=== PATIENT | male | born 1980 ===

== ENCOUNTER 2020-09-03 23:42 | Emergency (ER) ==
[2020-09-04] MEDS ORDERED: Fluorescein Opthalmic Strip ONE (02:58)
[2020-09-04] MEDS ORDERED: Proparacaine 0.5% Opth 15 ML BOT ONE (02:58)
[2020-09-04] MEDS ORDERED: Boostrix 0.5 ML (Tdap) VIAL ONE (03:24)
== END 2020-09-04 03:37 | disposition home or self-care (01) ==
LOC: ERS 23:42 → EDBD 23:42 → ERS 09-04 03:37
DX: S05.02XA Injury of conjunctiva and corneal abrasion without foreign body, left eye, initial encounter (principal); I10 Essential (primary) hypertension; E78.5 Hyperlipidemia, unspecified; E03.9 Hypothyroidism, unspecified; F17.220 Nicotine dependence, chewing tobacco, uncomplicated; W22.8XXA Striking against or struck by other objects, initial encounter
CPT/HCPCS: 90471; 90715